=== PATIENT | male | born 1960 | race African-American/Black ===

== ENCOUNTER → 2021-01-07 | Outpatient (CLI) | payer OTHER ==
[~2021-01-07] MED LIST: AMIT25TA PO; LISI-517 PO
== END ==
LOC: LAB 11:38
PROVIDERS: ATTEND Podiatrist Foot & Ankle Surgery
DX: Z01.812 Encounter for preprocedural laboratory examination (principal); Z20.822 Contact with and (suspected) exposure to COVID-19; Z89.439 Acquired absence of unspecified foot
CPT/HCPCS: U0003

== ENCOUNTER → 2021-01-11 | Day surgery (SDC) | payer OTHER ==
[~2021-01-11] MED LIST changes: +AMITRIPTYLINE HCL 25 MG TABLET. PO SCH; +BUPIVACAINE MPF 0.5% 30 ML VIAL. ONE; +DEXAMETHASONE SOD PHOS 4 MG/ML VIAL ONE; +HYDROmorphone 2 MG/ML VIAL IVP PRN; +IV RINGERS,LACTATED 1000ML 1,000 ML IV SCH; +LIDOCAINE 1% PF 30 ML VIAL. ONE; +LIDOCAINE 2% PF 5 ML VIAL. ONE; +LISINOPRIL 5 MG TABLET. PO SCH; +MIDAZOLAM HCL/PF 2 MG/2 ML VIAL. ONE; +MORPHINE SULFATE 2 MG/ML VIAL. IVP PRN; +POVIDONE-IODINE 10% TOPICAL OINTMENT 28GM TUBE. TP ONE; +PROCHLORPERAZINE 10 MG/2 ML VIAL. IVP PRN; +PROPOFOL 10 MG/ML (20ML) VIAL. IV ONE; +REGADENOSON 0.4 MG/5 ML DISP.SYRIN. IV ONE; +ROCURONIUM 50 MG/5 ML VIAL. ONE; +fentaNYL PF VIAL 100 MCG/2 ML VIAL IVP PRN; +fentaNYL PF VIAL 100 MCG/2 ML VIAL ONE; +fentaNYL PF VIAL 250 MCG/5 ML VIAL ONE
--- NOTE | 2021-01-11 10:19 | PDOC1 ---
History and Physical Date of Admission Date of Admission DATE: 01/11/21 TIME: 10:18 Identification/Chief Complaint Chief Complaint left foot 1st toe pain, 2nd toe pain, occasional exertional angina, surgery on hold pending cardiology consult History of Present Illness History of Present Illness 60 yr old male with left foot pain, hallux deformity to have surgical correction today, has noticed some chest discomfort ove the last 2 weeks, none today, ekg and troponin ordered pre-op is also a heavy drinker, smokes 1/2 ppd x 40 plus years Past Medical History Cardiovascular: HTN Musculoskeletal: Osteoarthritis Family History Family History: Hypertension Social History Smoke: <1 pack per day ALCOHOL: heavy Drugs: None Current Medications Current Medications Current Medications Fentanyl Citrate (Fentanyl 2ml Vial) 25 mcg PRN Q5MIN PRN IVP MILD PAIN 1-3; Start 01/11/21 at 06:00; Stop 01/12/21 at 05:59 Fentanyl Citrate (Fentanyl 2ml Vial) 50 mcg PRN Q5MIN PRN IVP MODERATE PAIN 4- 6; Start 01/11/21 at 06:00; Stop 01/12/21 at 05:59 Morphine Sulfate (Morphine Sulfate) 1 mg PRN Q10MIN PRN IVP SEVERE PAIN 7-10; Start 01/11/21 at 06:00; Stop 01/12/21 at 05:59 Ringer's Solution 1,000 ml @ 30 mls/hr Q24H IV ; Start 01/11/21 at 06:00; Stop 01/11/21 at 17:59 Hydromorphone HCl (Dilaudid) 0.5 mg PRN Q10MIN PRN IVP SEVERE PAIN 7-10, 2nd CHOICE; Start 01/11/21 at 06:00; Stop 01/12/21 at 05:59 Prochlorperazine Edisylate (Compazine) 5 mg PACU PRN PRN IVP NAUSEA, MRX1; Start 01/11/21 at 06:00; Stop 01/12/21 at 05:59 Active Scripts Active Reported Amitriptyline Hcl 25 Mg Tablet 25 Mg PO DAILY Lisinopril 5 Mg Tablet 1 Tab PO DAILY Allergies Allergies: Coded Allergies: No Known Drug Allergies (Unverified , 01/11/21) ROS Review of System was having chest discomfort last week General: No: Chills, Night Sweats, Fatigue, Malaise, Appetite, Other PSYCHOLOGICAL ROS: No: Anxiety, Behavioral Disorder, Concentration difficultie, Decreased libido, Depression, Disorientation, Hallucinations, Hostility, Irritablity, Memory difficulties, Mood Swings, Obsessive thoughts, Physical abuse, Sexual abuse, Sleep disturbances, Suicidal ideation, Other Eyes: No Blurry vision, No Decreased vision, No Double vision, No Dry eyes, No Excessive tearing, No Eye Pain, No Itchy Eyes, No Loss of vision, No Photophobia , No Scotomata, No Uses contacts, No Uses glasses, No Other HEENT: No: Heacaches, Visual Changes, Hearing change, Nasal congestion, Nasal discharge, Oral lesions, Sinus pain, Sore Throat, Epistaxis, Sneezing, Snoring, Tinnitus, Vertigo, Vocal changes, Other ALLERGY AND IMMUNOLOGY: No: Hives, Insect Bite Sensitivity, Itchy/Watery Eyes, Nasal Congestion, Post Nasal Drip, Seasonal Allergies, Other Hematological and Lymphatic: No: Bleeding Problems, Blood Clots, Blood Transfusions, Brusing, Night Sweats, Pallor, Swollen Lymph Nodes, Other ENDOCRINE: No: Breast Changes, Galactorrhea, Hair Pattern Changes, Hot Flashes, Malaise/lethargy, Mood Swings, Palpitations, Polydipsia/polyuria, Skin Changes, Temperature Intolerance, Unexpected Weight Changes, Other Breast: No New/Changing Breast Lumps, No Nipple changes, No Nipple discharge, No Other Respiratory: No: Cough, Hemoptysis, Orthopnea, Pleuritic Pain, Shortness of breath, SOB with excertion, Sputum Changes, Stridor, Tachypnea, Wheezing, Other Cardiovascular: yes Chest Pain; No Palpitations, No Orthopnea, No Paroxysmal Noc. Dyspnea, No Edema, No Lt Headedness, No Other (occ exertional angina) Gastrointestinal: No Nausea, No Vomiting, No Abdominal Pain, No Diarrhea, No Constipation, No Melena, No Hematochezia, No Other Genitourinary: No Dysuria, No Frequency, No Incontinence, No Hematuria, No Retention, No Discharge, No Urgency, No Pain, No Flank Pain, No Other, No , No , No , No , No , No , No Musculoskeletal: Yes Gait Disturbance, Yes Joint Pain, Yes Joint Stiffness Neurological: No Behavorial Changes, No Bowel/Bladder ControlChng, No Confus ion, No Dizziness, No Gait Disturbance, No Headaches, No Impaired Coord/balance, No Memory Loss, No Numbness/Tingling, No Seizures, No Speech Problems, No Tremors, No Visual Changes, No Weakness, No Other Skin: No Dry Skin, No Eczema, No Hair Changes, No Lumps, No Mole Changes, No Mottling, No Nail Changes, No Pruritus, No Rash, No Skin Lesion Changes, No Othe r, No Acne Physical Exam General: Alert, Oriented X3, Cooperative, No acute distress HEENT: PERRLA Lungs: Clear to auscultation, Normal air movement Heart: S1S2, RRR, no thrills, no rubs, no gallops, no murmurs Breasts: Not examined Abdomen: Normal bowel sounds, Soft Rectal Exam: not examined, deferred Extremities: No cyanosis Neuro: Normal speech, Strength at 5/5 X4 ext, Normal tone, Sensation intact, Cranial nerves 3-12 NL Psych/Mental Status: Mental status NL, Mood NL VTE Prophylaxis Ordered VTE Prophylaxis Devices: Yes VTE Pharmacological Prophylaxi: Yes Assessment/Plan Assessment/Plan impression 1. left foot pain with hallux deformity 2. hx hypertension 3. recent chest discomfort concerning for CAD 4. heavy alcohol abuse 5. Tobacco abuse disorder plan ekg stat, troponin , cbc, comp, cxr HOLD SURGERY TODAY, CARDIOLOGY CONSULT REDUCE OR STOP ETOH ABUSE HOME MEDS Justifications for Admission Other Justification SUMEET RIVERA MD Jan 11, 2021 10:19
[2021-01-11 10:23] VITALS: BP 178/98
[2021-01-11 10:42] LABS: BASO % 1 % (0-3); EOS # 0.2 x10^3/uL (0.0-0.7); EOS % 4 % (0-3); HEMATOCRIT 45.4 % (39.0-53.0); HEMOGLOBIN 15.3 g/dL (13.0-17.5); LYMPH # 1.5 x10^3/uL (1.0-4.8); LYMPH % 31 % (24-48); MEAN CORPUSCULAR HEMOGLOBIN 31 pg (25-35); MEAN CORPUSCULAR HGB CONC 34 g/dL (31-37); MEAN CORPUSCULAR VOLUME 93 fL (79-100); MONO # 0.6 x10^3/uL (0.0-1.1); MONO % 12 % (0-9); NEUT # 2.5 x10^3/uL (1.8-7.7); NEUT % 52 % (31-73); PLATELET COUNT 305 x10^3/uL (140-400); RED BLOOD COUNT 4.86 x10^6/uL (4.30-5.70); RED CELL DISTRIBUTION WIDTH 14.5 % (11.5-14.5); WHITE BLOOD COUNT 4.8 x10^3/uL (4.0-11.0)
[2021-01-11 11:04] LABS: CALCIUM 8.5 mg/dL (8.5-10.1); GFR 92.5; POTASSIUM 4.2 mmol/L (3.5-5.1)
--- NOTE | 2021-01-11 11:26 | RAD ---
XR CHEST 1V History: Reason: chest pain / Spl. Instructions: Comparison: None. Findings: Mild bibasilar linear atelectasis. No consolidation or pleural effusion. Normal heart size. No pneumo thorax. Impression: 1. Mild bibasilar linear atelectasis. Electronically signed by: German Darling DO (01/11/2021 11:24 AM) [id number]
--- NOTE | 2021-01-11 12:01 | NUR ---
PT CANCELED FOR TOE AMPUTATION. PT STATES HE HAS BEEN HAVING INTERMITTENT CP ON EXERTION IN THE LAST FEW WEEKS. EKG, CXR, TRAPONIN, CBC, CMP ORDERED AND REVIEWED VIA DR CROWE AND LEROY TELEPHONE OPERATOR RECEPTIONIST ARCHITECTURE PROFESSOR. SURGERY CANCELLED FOR TODAY. CARDIOLOGY TO ORDER STRESS TEST AND PT TO RESCHEDULE ELECTIVE TOE AMPUTATION AT A LATER DATE. ANESTHESIA AND DR HUERTA NOTIFIED OF CANCELLATION.
--- NOTE | 2021-01-11 12:20 | NUR ---
[facility] CALLED AND PT TO GO TO [facility] STRESS TEST TODAY. [facility] TO COME GET PT FROM [facility] ROOM [facility] AND TAKE HIM TO [facility]. NOTIFIED THEM TO NOTIFY LEROY LUKE AFTER TEST IS OVER FOR CLEARANCE TO GO HOME. PT IS DISCHARGED FOR NOW FROM ANESTHESIA AND SURGERY PERSPECTIVE TODAY. TO RESCHEDULE SURGERY PENDING CARDIAC CLEARANCE AT A LATER DATE
[2021-01-11 12:37] LABS: CHOLESTEROL/HDL RATIO 2.9
--- NOTE | 2021-01-11 15:46 | PDOC2 ---
CARDIAC CONSULT DATE OF CONSULT Date of Consult DATE: 01/11/21 TIME: 1300 REASON FOR CONSULT Reason for Consult: Chest pain REFERRING PHYSICIAN Referring Physician: Fullbright SOURCE Source: Chart review, Patient HISTORY OF PRESENT ILLNESS HISTORY OF PRESENT ILLNESS This is a pleasant 60 yo male admitted for planned left 2nd toe amputation. He was being prepped and hx being obtained but has reported recently in the last 2 weeks of exertional chest pain and dyspnea. This is intermittent and thought this is anxiety related. 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 He goes up the stairs and move heavy object and started having midchest tightness and resolved in 5-10 minutes after rest. No associated, heartburn, indigestion, jaw tightness, nausea or vomiting. His SOAis also intermittent mainly with exertion. No hx of CAD and had remote stress test. No known hx of arrhythmias. He has HTN and takes med for it. He was also told of high cholesterol in the past but no meds. He is a heavy beer use and smokes a pack of tobacco since he was 8 yo. Denies any routine NSAID use. PAST MEDICAL HISTORY Cardiovascular: HTN, Hyperlipidemia Pulmonary: No pertinent hx CENTRAL NERVOUS SYSTEM: Other (No pertinent history) GI: No pertinent hx Heme/Onc: No pertinent hx Hepatobiliary: No pertinent hx Psych: Anxiety, Other (heavy ETOH use) Musculoskeletal: Osteoarthritis Rheumatologic: No pertinent hx Infectious disease: No pertinent hx ENT: No pertinent hx Renal/: No pertinent hx Endocrine: No pertinent hx Dermatology: No pertinent hx PAST SURGICAL HISTORY Past Surgical History: Arthroscopy (left ankle, toe surgery) FAMILY HISTORY Family History: Heart Disease (sister), Stroke (father) SOCIAL HISTORY Smoke: 1 pack per day ALCOHOL: heavy ( 6 beers at least daily) Drugs: None Lives: with Family CURRENT MEDICATIONS CURRENT MEDICATIONS Current Medications Medications (Trade) Dose Ordered Sig/Marshall Route PRN Reason Start Time Stop Time Status Last Admin Dose Admin Ringer's Solution 1,000 ml @ 30 mls/hr Q24H IV 01/11/21 06:00 01/11/21 17:59 01/11/21 10:28 Regadenoson (Lexiscan) 0.4 mg 1X ONCE IV 01/11/21 14:00 01/11/21 14:01 DC 01/11/21 14:45 ALLERGIES ALLERGIES: Coded Allergies: No Known Drug Allergies (Unverified , 01/11/21) ROS Review of System 14 point ROS evaluated with pertinent positives noted per HPI PHYSICAL EXAM General: Alert, Oriented X3, Cooperative, No acute distress HEENT: Atraumatic, Mucous membr. moist/pink Lungs: Clear to auscultation, Normal air movement Heart: Regular rate (SR per EKG), Normal S1, Normal S2, No murmurs Abdomen: Soft, No tenderness Extremities: No cyanosis, No edema Skin: No breakdown, No significant lesion Neuro: Normal speech, Sensation intact Psych/Mental Status: Mental status NL, Mood NL MUSCULOSKELETAL: Osteoarthritic changes both hands VITALS/I&O VITALS/I&O: Vital Signs Date Time Temp Pulse Resp B/P (MAP) Pulse Ox O2 Delivery O2 Flow Rate FiO2 01/11/21 10:23 97.6 80 20 98 97.6 01/11/21 10:18 178/98 Room Air LABS Lab: Laboratory Tests Test 01/11/21 10:28 White Blood Count 4.8 x10^3/uL (4.0-11.0) Red Blood Count 4.86 x10^6/uL (4.30-5.70) Hemoglobin 15.3 g/dL (13.0-17.5) Hematocrit 45.4 % (39.0-53.0) Mean Corpuscular Volume 93 fL (79-100) Mean Corpuscular Hemoglobin 31 pg (25-35) Mean Corpuscular Hemoglobin Concent 34 g/dL (31-37) Red Cell Distribution Width 14.5 % (11.5-14.5) Platelet Count 305 x10^3/uL (140-400) Neutrophils (%) (Auto) 52 % (31-73) Lymphocytes (%) (Auto) 31 % (24-48) Monocytes (%) (Auto) 12 % (0-9) H Eosinophils (%) (Auto) 4 % (0-3) H Basophils (%) (Auto) 1 % (0-3) Neutrophils # (Auto) 2.5 x10^3/uL (1.8-7.7) Lymphocytes # (Auto) 1.5 x10^3/uL (1.0-4.8) Monocytes # (Auto) 0.6 x10^3/uL (0.0-1.1) Eosinophils # (Auto) 0.2 x10^3/uL (0.0-0.7) Basophils # (Auto) 0.0 x10^3/uL (0.0-0.2) Sodium Level 139 mmol/L (136-145) Potassium Level 4.2 mmol/L (3.5-5.1) Chloride Level 104 mmol/L (98-107) Carbon Dioxide Level 27 mmol/L (21-32) Anion Gap 8 (6-14) Blood Urea Nitrogen 11 mg/dL (8-26) Creatinine 1.0 mg/dL (0.7-1.3) Estimated GFR (Cockcroft-Gault) 92.5 Glucose Level 99 mg/dL (70-99) Calcium Level 8.5 mg/dL (8.5-10.1) Troponin I Quantitative < 0.017 ng/mL (0.000-0.055) Triglycerides Level 97 mg/dL (0-150) Cholesterol Level 194 mg/dL (0-200) LDL Cholesterol, Calculated 109 mg/dL (0-100) H VLDL Cholesterol, Calculated 19 mg/dL (0-40) Non-HDL Cholesterol Calculated 128 mg/dL (0-129) HDL Cholesterol 66 mg/dL (40-60) H Cholesterol/HDL Ratio 2.9 Laboratory Tests 01/11/21 10:28 Laboratory Tests 01/11/21 10:28 ASSESSMENT/PLAN ASSESSMENT/PLAN 1. Chest pain: typical features. initial trop nml. EKG SR with possible LVH and early repolarization 2. Left hallux deformity with planned correction 3. HTN: labile 4. DLP: no med 5. Tobaccoism 6. ETOH misuse: 6 beers daily Recommendations 1. Notable cardiac risk factors. MPI today. If this is unremarkable then may DC to home and reschedule surgery 2. Continue home BP regimen, on home lisinopril. DASH diet. HBPM. Check FLP 3. Smoking cessation, need to curb ETOH use. LEROY LUKE APRN Jan 11, 2021 15:46
--- NOTE | 2021-01-11 18:25 | RAD ---
MR#: [id number] Date of Study: 01/11/2021 Ordering Physician: LEROY LUKE, Referring Physician: CASI WATTS Tech: RT Ian Wilson) (N) APPROVED REPORT Test Type: Pharmacological Stress Nurse/Tech: JIMMY MAS Test Indications: PRE-OP, CHEST PAIN 2 WEEKS AGO Cardiac History: HTN- SEE EMR Medications: SEE EMR Medical History: SMOKER, HTN- SEE EMR Resting ECG: SR Resting Heart Rate: 71 bpm Resting Blood Pressure: 152/94mmHg Pretest Chest Pain: No chest pain Nurse/Tech Notes S1,S2, LUNGS CTA, DENIED CHEST PAIN OR SOA AT THIS TIME. BP SLIGHTLY ELEVATED. Consent: The procedure was explained to the patient in lay terms. Informed consent was witnessed. Madan eout was entered into [facility]. History and Stress Test performed by RT Ian Wilson) (N) Pharm. Details Pharmacologic stress testing was performed using 0.4mg per 5ml of regadenoson given intravenously ove r 7-10 seconds. Stress Symptoms ONLY COMPLAINT PT HAD WAS SHORTNESS OF BREATH, SYMPTOM SUBSIDED QUICKLY. DENIED CHEST PAIN. VSS. POST EXERCISE Reason for Termination: Infusion complete Max HR: 113 bpm Max Blood Pressure: 158/97mmHg Blood Pressure response to exercise: Abnormal blood pressure response during stress. Heart Rate response to exercise: Normal heart rate response during stress. Chest Pain: No. Arrhythmia: No. No significant changes noted from baseline EKG. ST Change: No. INTERPRETATION Stress EKG Conclusion: Baseline EKG showed sinus rhythm. No ischemic changes at peak stress. No arr hythmias. Imaging Protocol IMAGE PROTOCOL: Rest Tc-99m/stress Tc-99m 1 day Rest: Stress: Viability: Radiopharm.Tc99m [id number] Sestamibi Dose10.6mCi 32mCi Duration 13min. 13min. Img Date 01/11/2021 01/11/2021 Inj-Img [id number]. 60min. Rest Admin Site:IV - Left HandAdministrator:RT Ian Wilson)(N) Stress Admin Site: IV - Left HandAdministrator: Rocio Toribio RT (R)(N) STRESS DATA End Diast. Vol.103.0mlLVEDV index BSA57.0ml End Syst. Vol.32.0mlLVESV index BSA18.0ml Myocardial Buge439.0gEject. Pphkctit07.0% Stress Scores Regional WT2.00Summed WT9.00 Regional WM0.00Summed WM1.00 Study quality was good. Left Ventricular size was Normal at Rest and Stress. Lung uptake was . Left Ventricular ejection fraction is 68%. The rest and stress images show normal perfusion, normal contraction and thickening. LV Perf. Quant 17 Seg. SSS1.00 17 Seg. SRS2.00 17 Seg. SDS0.00 Stress Defect Extent (% LAD)0.00Rest Defect Extent (% LAD)0.00Rev. Defect Extent (% LAD)0.00 Stress Defect Extent (% LCX) 0.00Rest Defect Extent (% LCX)0.00Rev. Defect Extent (% LCX)0.00 Stress Defect Extent (% RCA)0.00Rest Defect Extent (% RCA)14.40Rev. Defect Extent (% RCA)0.00 Stress Defect Extent (% STACIA)0.00Rest Defect Extent (% STACIA)3.90Rev. Defect Extent (% STACIA)0.00 Conclusion 1. Regadenoson cardioisotope stress test did not show any evidence of ischemia or infarct. 2. Normal left ventricular systolic function with ejection fraction calculated at 68%. 3. Low risk for cardiac events. Signed by : Ramos Perez, Electronically Approved : 01/11/2021 18:25:01
--- NOTE | 2021-01-11 19:06 | PDOC3 ---
Discharge Summary Date of Admission: Jan 11, 2021 Date of Discharge: Jan 11, 2021 Follow-Up: 3-5 days Admitting Diagnosis comment: VTE Prophylaxis Ordered VTE Prophylaxis Devices: Yes VTE Pharmacological Prophylaxi: Yes discharge dx Assessment/Plan impression 1. left foot pain with hallux deformity 2. hx hypertension 3. recent chest discomfort concerning for CAD 4. heavy alcohol abuse 5. Tobacco abuse disorder plan ekg stat, troponin , cbc, comp, cxr HOLD SURGERY TODAY, CARDIOLOGY CONSULT reviewed REDUCE OR STOP ETOH ABUSE HOME MEDS stress test today was low risk, will re-schedule surgery soon hpi Identification/Chief Complaint Chief Complaint left foot 1st toe pain, 2nd toe pain, occasional exertional angina, surgery on hold pending cardiology consult History of Present Illness History of Present Illness 60 yr old male with left foot pain, hallux deformity to have surgical correction today, has noticed some chest discomfort ove the last 2 weeks, none today, ekg and troponin ordered pre-op is also a heavy drinker, smokes 1/2 ppd x 40 plus years Past Medical History Cardiovascular: HTN Musculoskeletal: Osteoarthritis Family History Family History: Hypertension Social History Smoke: <1 pack per day ALCOHOL: heavy Drugs: None Current Medications Current Medications Current Medications Fentanyl Citrate (Fentanyl 2ml Vial) 25 mcg PRN Q5MIN PRN IVP MILD PAIN 1-3; Start 01/11/21 at 06:00; Stop 01/12/21 at 05:59 Fentanyl Citrate (Fentanyl 2ml Vial) 50 mcg PRN Q5MIN PRN IVP MODERATE PAIN 4- 6; Start 01/11/21 at 06:00; Stop 01/12/21 at 05:59 Morphine Sulfate (Morphine Sulfate) 1 mg PRN Q10MIN PRN IVP SEVERE PAIN 7-10; Start 01/11/21 at 06:00; Stop 01/12/21 at 05:59 Ringer's Solution 1,000 ml @ 30 mls/hr Q24H IV ; Start 01/11/21 at 06:00; Stop 01/11/21 at 17:59 Hydromorphone HCl (Dilaudid) 0.5 mg PRN Q10MIN PRN IVP SEVERE PAIN 7-10, 2nd CHOICE; Start 01/11/21 at 06:00; Stop 01/12/21 at 05:59 Prochlorperazine Edisylate (Compazine) 5 mg PACU PRN PRN IVP NAUSEA, MRX1; Start 01/11/21 at 06:00; Stop 01/12/21 at 05:59 Active Scripts Active Reported Amitriptyline Hcl 25 Mg Tablet 25 Mg PO DAILY Lisinopril 5 Mg Tablet 1 Tab PO DAILY Allergies Allergies: Coded Allergies: No Known Drug Allergies (Unverified , 01/11/21) ROS Review of System was having chest discomfort last week General: No: Chills, Night Sweats, Fatigue, Malaise, Appetite, Other PSYCHOLOGICAL ROS: No: Anxiety, Behavioral Disorder, Concentration difficultie, Decreased libido, Depression, Disorientation, Hallucinations, Hostility, Irritablity, Memory difficulties, Mood Swings, Obsessive thoughts, Physical abuse, Sexual abuse, Sleep disturbances, Suicidal ideation, Other Eyes: No Blurry vision, No Decreased vision, No Double vision, No Dry eyes, No Excessive tearing, No Eye Pain, No Itchy Eyes, No Loss of vision, No Photophobia, No Scotomata, No Uses contacts, No Uses glasses, No Other HEENT: No: Heacaches, Visual Changes, Hearing change, Nasal congestion, Nasal discharge, Oral lesions, Sinus pain, Sore Throat, Epistaxis, Sneezing, Snoring, Tinnitus, Vertigo, Vocal changes, Other ALLERGY AND IMMUNOLOGY: No: Hives, Insect Bite Sensitivity, Itchy/Watery Eyes, Nasal Congestion, Post Nasal Drip, Seasonal Allergies, Other Hematological and Lymphatic: No: Bleeding Problems, Blood Clots, Blood Transfusions, Brusing, Night Sweats, Pallor, Swollen Lymph Nodes, Other ENDOCRINE: No: Breast Changes, Galactorrhea, Hair Pattern Changes, Hot Flashes, Malaise/lethargy, Mood Swings, Palpitations, Polydipsia/polyuria, Skin Changes, Temperature Intolerance, Unexpected Weight Changes, Other Breast: No New/Changing Breast Lumps, No Nipple changes, No Nipple discharge, No Other Respiratory: No: Cough, Hemoptysis, Orthopnea, Pleuritic Pain, Shortness of breath, SOB with excertion, Sputum Changes, Stridor, Tachypnea, Wheezing, Other Cardiovascular: yes Chest Pain; No Palpitations, No Orthopnea, No Paroxysmal Noc. Dyspnea, No Edema, No Lt Headedness, No Other (occ exertional angina) Gastrointestinal: No Nausea, No Vomiting, No Abdominal Pain, No Diarrhea, No Constipation, No Melena, No Hematochezia, No Other Genitourinary: No Dysuria, No Frequency, No Incontinence, No Hematuria, No Retention, No Discharge, No Urgency, No Pain, No Flank Pain, No Other, No , No , No , No , No , No , No Musculoskeletal: Yes Gait Disturbance, Yes Joint Pain, Yes Joint Stiffness Neurological: No Behavorial Changes, No Bowel/Bladder ControlChng, No Confusion, No Dizziness, No Gait Disturbance, No Headaches, No Impaired Coord/balance, No Memory Loss, No Numbness/Tingling, No Seizures, No Speech Prob lems, No Tremors, No Visual Changes, No Weakness, No Other Skin: No Dry Skin, No Eczema, No Hair Changes, No Lumps, No Mole Changes, No Mottling, No Nail Changes, No Pruritus, No Rash, No Skin Lesion Changes, No Other, No Acne Physical Exam General: Alert, Oriented X3, Cooperative, No acute distress HEENT: PERRLA Lungs: Clear to auscultation, Normal air movement Heart: S1S2, RRR, no thrills, no rubs, no gallops, no murmurs Breasts: Not examined Abdomen: Normal bowel sounds, Soft Rectal Exam: not examined, deferred Extremities: No cyanosis Neuro: Normal speech, Strength at 5/5 X4 ext, Normal tone, Sensation intact, Cranial nerves 3-12 NL Psych/Mental Status: Mental status NL, Mood NL VTE Prophylaxis Ordered VTE Prophylaxis Devices: Yes VTE Pharmacological Prophylaxi: Yes Brief Hospital Course Mr. Monterroso is a 60 old [sex] who presented with [ foot pain, recent chest discomfort] CONDITION AT DISCHARGE: Improved Discharge Medications Current Medications Fentanyl Citrate (Fentanyl 2ml Vial) 25 mcg PRN Q5MIN PRN IVP MILD PAIN 1-3; Start 01/11/21 at 06:00; Stop 01/12/21 at 05:59 Fentanyl Citrate (Fentanyl 2ml Vial) 50 mcg PRN Q5MIN PRN IVP MODERATE PAIN 4- 6; Start 01/11/21 at 06:00; Stop 01/12/21 at 05:59 Morphine Sulfate (Morphine Sulfate) 1 mg PRN Q10MIN PRN IVP SEVERE PAIN 7-10; Start 01/11/21 at 06:00; Stop 01/12/21 at 05:59 Ringer's Solution 1,000 ml @ 30 mls/hr Q24H IV Last administered on 01/11/21at 10:28; Start 01/11/21 at 06:00; Stop 01/11/21 at 17:59; Status DC Hydromorphone HCl (Dilaudid) 0.5 mg PRN Q10MIN PRN IVP SEVERE PAIN 7-10, 2nd CHOICE; Start 01/11/21 at 06:00; Stop 01/12/21 at 05:59 Prochlorperazine Edisylate (Compazine) 5 mg PACU PRN PRN IVP NAUSEA, MRX1; Start 01/11/21 at 06:00; Stop 01/12/21 at 05:59 Amitriptyline HCl (Elavil) 25 mg DAILY PO ; Start 01/12/21 at 09:00; Status UNV Lisinopril (Prinivil) 5 mg DAILY PO ; Start 01/12/21 at 09:00; Status UNV Lidocaine HCl (Lidocaine Pf 2% Vial) 5 ml STK-MED ONCE .ROUTE ; Start 01/11/21 at 10:48; Stop 01/11/21 at 10:49; Status DC Propofol (Diprivan) 200 mg STK-MED ONCE IV ; Start 01/11/21 at 10:48; Stop 01/11/21 at 10:49; Status DC Fentanyl Citrate (Fentanyl 2ml Vial) 100 mcg STK-MED ONCE .ROUTE ; Start 01/11/21 at 10:48; Stop 01/11/21 at 10:49; Status DC Lidocaine HCl (Xylocaine 1% Pf 30ml Vial) 30 ml STK-MED ONCE .ROUTE ; Start 01/11/21 at 11:56; Stop 01/11/21 at 11:56; Status DC Bupivacaine HCl (Sensorcaine Mpf 0.5%) 30 ml STK-MED ONCE .ROUTE ; Start 01/11/21 at 11:56; Stop 01/11/21 at 11:56; Status DC Povidone Iodine (Betadine Oint) 28 lee ann STK-MED ONCE TP ; Start 01/11/21 at 11:59; Stop 01/11/21 at 11:59; Status DC Dexamethasone Sodium Phosphate (Decadron) 4 mg STK-MED ONCE .ROUTE ; Start 01/11/21 at 11:59; Stop 01/11/21 at 11:59; Status DC Regadenoson (Lexiscan) 0.4 mg 1X ONCE IV Last administered on 01/11/21at 14:45; Start 01/11/21 at 14:00; Stop 01/11/21 at 14:01; Status DC Active Scripts Active Reported Amitriptyline Hcl 25 Mg Tablet 25 Mg PO DAILY Lisinopril 5 Mg Tablet 1 Tab PO DAILY Vital Signs Vital Signs Date Time Temp Pulse Resp B/P (MAP) Pulse Ox O2 Delivery O2 Flow Rate FiO2 01/11/21 10:23 97.6 80 20 98 97.6 01/11/21 10:18 178/98 Room Air Labs Laboratory Tests Test 01/11/21 10:28 White Blood Count 4.8 x10^3/uL (4.0-11.0) Red Blood Count 4.86 x10^6/uL (4.30-5.70) Hemoglobin 15.3 g/dL (13.0-17.5) Hematocrit 45.4 % (39.0-53.0) Mean Corpuscular Volume 93 fL (79-100) Mean Corpuscular Hemoglobin 31 pg (25-35) Mean Corpuscular Hemoglobin Concent 34 g/dL (31-37) Red Cell Distribution Width 14.5 % (11.5-14.5) Platelet Count 305 x10^3/uL (140-400) Neutrophils (%) (Auto) 52 % (31-73) Lymphocytes (%) (Auto) 31 % (24-48) Monocytes (%) (Auto) 12 % (0-9) Eosinophils (%) (Auto) 4 % (0-3) Basophils (%) (Auto) 1 % (0-3) Neutrophils # (Auto) 2.5 x10^3/uL (1.8-7.7) Lymphocytes # (Auto) 1.5 x10^3/uL (1.0-4.8) Monocytes # (Auto) 0.6 x10^3/uL (0.0-1.1) Eosinophils # (Auto) 0.2 x10^3/uL (0.0-0.7) Basophils # (Auto) 0.0 x10^3/uL (0.0-0.2) Sodium Level 139 mmol/L (136-145) Potassium Level 4.2 mmol/L (3.5-5.1) Chloride Level 104 mmol/L (98-107) Carbon Dioxide Level 27 mmol/L (21-32) Anion Gap 8 (6-14) Blood Urea Nitrogen 11 mg/dL (8-26) Creatinine 1.0 mg/dL (0.7-1.3) Estimated GFR (Cockcroft-Gault) 92.5 Glucose Level 99 mg/dL (70-99) Calcium Level 8.5 mg/dL (8.5-10.1) Troponin I Quantitative < 0.017 ng/mL (0.000-0.055) Triglycerides Level 97 mg/dL (0-150) Cholesterol Level 194 mg/dL (0-200) LDL Cholesterol, Calculated 109 mg/dL (0-100) VLDL Cholesterol, Calculated 19 mg/dL (0-40) Non-HDL Cholesterol Calculated 128 mg/dL (0-129) HDL Cholesterol 66 mg/dL (40-60) Cholesterol/HDL Ratio 2.9 Laboratory Tests Test 01/11/21 10:28 White Blood Count 4.8 x10^3/uL (4.0-11.0) Red Blood Count 4.86 x10^6/uL (4.30-5.70) Hemoglobin 15.3 g/dL (13.0-17.5) Hematocrit 45.4 % (39.0-53.0) Mean Corpuscular Volume 93 fL (79-100) Mean Corpuscular Hemoglobin 31 pg (25-35) Mean Corpuscular Hemoglobin Concent 34 g/dL (31-37) Red Cell Distribution Width 14.5 % (11.5-14.5) Platelet Count 305 x10^3/uL (140-400) Neutrophils (%) (Auto) 52 % (31-73) Lymphocytes (%) (Auto) 31 % (24-48) Monocytes (%) (Auto) 12 % (0-9) Eosinophils (%) (Auto) 4 % (0-3) Basophils (%) (Auto) 1 % (0-3) Neutrophils # (Auto) 2.5 x10^3/uL (1.8-7.7) Lymphocytes # (Auto) 1.5 x10^3/uL (1.0-4.8) Monocytes # (Auto) 0.6 x10^3/uL (0.0-1.1) Eosinophils # (Auto) 0.2 x10^3/uL (0.0-0.7) Basophils # (Auto) 0.0 x10^3/uL (0.0-0.2) Sodium Level 139 mmol/L (136-145) Potassium Level 4.2 mmol/L (3.5-5.1) Chloride Level 104 mmol/L (98-107) Carbon Dioxide Level 27 mmol/L (21-32) Anion Gap 8 (6-14) Blood Urea Nitrogen 11 mg/dL (8-26) Creatinine 1.0 mg/dL (0.7-1.3) Estimated GFR (Cockcroft-Gault) 92.5 Glucose Level 99 mg/dL (70-99) Calcium Level 8.5 mg/dL (8.5-10.1) Troponin I Quantitative < 0.017 ng/mL (0.000-0.055) Triglycerides Level 97 mg/dL (0-150) Cholesterol Level 194 mg/dL (0-200) LDL Cholesterol, Calculated 109 mg/dL (0-100) VLDL Cholesterol, Calculated 19 mg/dL (0-40) Non-HDL Cholesterol Calculated 128 mg/dL (0-129) HDL Cholesterol 66 mg/dL (40-60) Cholesterol/HDL Ratio 2.9 Allergies Allergies Coded Allergies Type Severity Reaction Last Updated Verified No Known Drug Allergies 01/11/21 No Disposition/Orders: D/C to Home Justicifation of Admission Dx: Justifications for Admission: Justification of Admission Dx: No Angina: New-Onset SUMEET RIVERA MD Jan 11, 2021 19:06
== END | disposition home or self-care (01) ==
LOC: SURG 09:53 → EDUNIT# 12:00
PROVIDERS: ATTEND Podiatrist Foot & Ankle Surgery
DX: R07.9 Chest pain, unspecified (principal); Z53.8 Procedure and treatment not carried out for other reasons; R06.02 Shortness of breath; J98.11 Atelectasis; M19.90 Unspecified osteoarthritis, unspecified site; I10 Essential (primary) hypertension; E78.00 Pure hypercholesterolemia, unspecified; Z87.891 Personal history of nicotine dependence; Z79.82 Long term (current) use of aspirin; Z79.899 Other long term (current) drug therapy; Z98.890 Other specified postprocedural states
CPT/HCPCS: 36415; 71045; 78452; 80048; 80061; 84484; 85025; 93017; A9500; J2785; J1100; J2250; J2704; J3010; J3490

== ENCOUNTER 2021-01-14 08:22 | Day surgery (SDC) | payer OTHER ==
[~2021-01-14 08:22] MED LIST changes: -AMITRIPTYLINE HCL 25 MG TABLET. PO SCH; -BUPIVACAINE MPF 0.5% 30 ML VIAL. ONE; -DEXAMETHASONE SOD PHOS 4 MG/ML VIAL ONE; -LIDOCAINE 1% PF 30 ML VIAL. ONE; -LIDOCAINE 2% PF 5 ML VIAL. ONE; -LISINOPRIL 5 MG TABLET. PO SCH; -MIDAZOLAM HCL/PF 2 MG/2 ML VIAL. ONE; -POVIDONE-IODINE 10% TOPICAL OINTMENT 28GM TUBE. TP ONE; -PROPOFOL 10 MG/ML (20ML) VIAL. IV ONE; -REGADENOSON 0.4 MG/5 ML DISP.SYRIN. IV ONE; -ROCURONIUM 50 MG/5 ML VIAL. ONE; -fentaNYL PF VIAL 100 MCG/2 ML VIAL ONE; -fentaNYL PF VIAL 250 MCG/5 ML VIAL ONE
[2021-01-14] MEDS ORDERED: BUPIVACAINE MPF 0.5% 30 ML VIAL. ONE (08:37)
[2021-01-14] MEDS ORDERED: LIDOCAINE 1% PF 30 ML VIAL. ONE (08:37)
[2021-01-14] MEDS ORDERED: DEXAMETHASONE SOD PHOS 4 MG/ML VIAL ONE ×2 (08:38→09:04)
[2021-01-14] MEDS ORDERED: POVIDONE-IODINE 10% TOPICAL OINTMENT 28GM TUBE. TP ONE (08:38)
--- NOTE | 2021-01-14 08:57 | PDOC1 ---
History and Physical Date of Admission Date of Admission DATE: 01/14/21 TIME: 08:57 Identification/Chief Complaint Chief Complaint foot pain History of Present Illness History of Present Illness Identification/Chief Complaint Chief Complaint left foot 1st toe pain, 2nd toe pain, occasional exertional angina, cardiology consult cleared this week History of Present Illness History of Present Illness 60 yr old male with left foot pain, hallux deformity to have surgical correction today, has noticed some chest discomfort over the last 2 weeks, none today, ekg and troponin ok this week is also a heavy drinker, smokes 1/2 ppd x 40 plus years Past Medical History Cardiovascular: HTN Musculoskeletal: Osteoarthritis Family History Family History: Hypertension Social History Smoke: <1 pack per day ALCOHOL: heavy Drugs: None Current Medications Current Medications Past Medical History Cardiovascular: HTN, Hyperlipidemia Pulmonary: No pertinent hx CENTRAL NERVOUS SYSTEM: Other GI: No pertinent hx Heme/Onc: No pertinent hx Hepatobiliary: No pertinent hx Psych: Anxiety, Other Musculoskeletal: Osteoarthritis Rheumatologic: No pertinent hx Infectious disease: No pertinent hx Renal/: No pertinent hx Endocrine: No pertinent hx Past Surgical History Past Surgical History: Arthroscopy Family History Family History: Heart Disease, Stroke Social History Smoke: <1 pack per day ALCOHOL: heavy Drugs: None Current Medications Current Medications Current Medications Fentanyl Citrate (Fentanyl 2ml Vial) 25 mcg PRN Q5MIN PRN IVP MILD PAIN 1-3; Start 01/14/21 at 06:00; Stop 01/15/21 at 05:59 Fentanyl Citrate (Fentanyl 2ml Vial) 50 mcg PRN Q5MIN PRN IVP MODERATE PAIN 4- 6; Start 01/14/21 at 06:00; Stop 01/15/21 at 05:59 Morphine Sulfate (Morphine Sulfate) 1 mg PRN Q10MIN PRN IVP SEVERE PAIN 7-10; Start 01/14/21 at 06:00; Stop 01/15/21 at 05:59 Ringer's Solution 1,000 ml @ 30 mls/hr Q24H IV ; Start 01/14/21 at 06:00; Stop 01/14/21 at 17:59 Hydromorphone HCl (Dilaudid) 0.5 mg PRN Q10MIN PRN IVP SEVERE PAIN 7-10, 2nd CHOICE; Start 01/14/21 at 06:00; Stop 01/15/21 at 05:59 Prochlorperazine Edisylate (Compazine) 5 mg PACU PRN PRN IVP NAUSEA, MRX1; Start 01/14/21 at 06:00; Stop 01/15/21 at 05:59 Fentanyl Citrate (Fentanyl 2ml Vial) 25 mcg PRN Q5MIN PRN IVP MILD PAIN 1-3; Start 01/14/21 at 06:00; Stop 01/15/21 at 05:59; Status UNV Fentanyl Citrate (Fentanyl 2ml Vial) 50 mcg PRN Q5MIN PRN IVP MODERATE PAIN 4- 6; Start 01/14/21 at 06:00; Stop 01/15/21 at 05:59; Status UNV Morphine Sulfate (Morphine Sulfate) 1 mg PRN Q10MIN PRN IVP SEVERE PAIN 7-10; Start 01/14/21 at 06:00; Stop 01/15/21 at 05:59; Status UNV Ringer's Solution 1,000 ml @ 30 mls/hr Q24H IV ; Start 01/14/21 at 06:00; Stop 01/14/21 at 17:59; Status UNV Hydromorphone HCl (Dilaudid) 0.5 mg PRN Q10MIN PRN IVP SEVERE PAIN 7-10, 2nd CHOICE; Start 01/14/21 at 06:00; Stop 01/15/21 at 05:59; Status UNV Prochlorperazine Edisylate (Compazine) 5 mg PACU PRN PRN IVP NAUSEA, MRX1; Start 01/14/21 at 06:00; Stop 01/15/21 at 05:59; Status UNV Lidocaine HCl (Xylocaine 1% Pf 30ml Vial) 30 ml STK-MED ONCE .ROUTE ; Start 01/14/21 at 08:37; Stop 01/14/21 at 08:37; Status DC Bupivacaine HCl (Sensorcaine Mpf 0.5%) 30 ml STK-MED ONCE .ROUTE ; Start 01/14/21 at 08:37; Stop 01/14/21 at 08:38; Status DC Povidone Iodine (Betadine Oint) 28 lee ann STK-MED ONCE TP ; Start 01/14/21 at 08:38; Stop 01/14/21 at 08:38; Status DC Dexamethasone Sodium Phosphate (Decadron) 4 mg STK-MED ONCE .ROUTE ; Start 01/14/21 at 08:38; Stop 01/14/21 at 08:38; Status DC Active Scripts Active Reported Amitriptyline Hcl 25 Mg Tablet 25 Mg PO DAILY Lisinopril 5 Mg Tablet 1 Tab PO DAILY Allergies Allergies: Coded Allergies: No Known Drug Allergies (Unverified , 01/11/21) ROS Review of System ROS Review of System was having chest discomfort last week General: No: Chills, Night Sweats, Fatigue, Malaise, Appetite, Other PSYCHOLOGICAL ROS: No: Anxiety, Behavioral Disorder, Concentration difficultie, Decreased libido, Depression, Disorientation, Hallucinations, Hostility, Irritablity, Memory difficulties, Mood Swings, Obsessive thoughts, Physical abuse, Sexual abuse, Sleep disturbances, Suicidal ideation, Other Eyes: No Blurry vision, No Decreased vision, No Double vision, No Dry eyes, No Excessive tearing, No Eye Pain, No Itchy Eyes, No Loss of vision, No Photophobia, No Scotomata, No Uses contacts, No Uses glasses, No Other HEENT: No: Heacaches, Visual Changes, Hearing change, Nasal congestion, Nasal discharge, Oral lesions, Sinus pain, Sore Throat, Epistaxis, Sneezing, Snoring, Tinnitus, Vertigo, Vocal changes, Other ALLERGY AND IMMUNOLOGY: No: Hives, Insect Bite Sensitivity, Itchy/Watery Eyes, Nasal Congestion, Post Nasal Drip, Seasonal Allergies, Other Hematological and Lymphatic: No: Bleeding Problems, Blood Clots, Blood Transfusions, Brusing, Night Sweats, Pallor, Swollen Lymph Nodes, Other ENDOCRINE: No: Breast Changes, Galactorrhea, Hair Pattern Changes, Hot Flashes, Malaise/lethargy, Mood Swings, Palpitations, Polydipsia/polyuria, Skin Changes, Temperature Intolerance, Unexpected Weight Changes, Other Breast: No New/Changing Breast Lumps, No Nipple changes, No Nipple discharge, No Other Respiratory: No: Cough, Hemoptysis, Orthopnea, Pleuritic Pain, Shortness of breath, SOB with excertion, Sputum Changes, Stridor, Tachypnea, Wheezing, Other Cardiovascular: yes Chest Pain; appears noncardiac No Palpitations, No Orthopnea, No Paroxysmal Noc. Dyspnea, No Edema, No Lt Headedness, No Other (occ exertional angina) Gastrointestinal: No Nausea, No Vomiting, No Abdominal Pain, No Diarrhea, No Constipation, No Melena, No Hematochezia, No Other Genitourinary: No Dysuria, No Frequency, No Incontinence, No Hematuria, No Retention, No Discharge, No Urgency, No Pain, No Flank Pain, No Other, No , No , No , No , No , No , No Musculoskeletal: Yes Gait Disturbance, Yes Joint Pain, Yes Joint Stiffness Neurological: No Behavorial Changes, No Bowel/Bladder ControlChng, No Confusion, No Dizziness, No Gait Disturbance, No Headaches, No Impaired Coord/balance, No Memory Loss, No Numbness/Tingling, No Seizures, No Speech Problems, No Tremors, No Visual Changes, No Weakness, No Other Skin: No Dry Skin, No Eczema, No Hair Changes, No Lumps, No Mole Changes, No Mottling, No Nail Changes, No Pruritus, No Rash, No Skin Lesion Changes, No Other, No Acne Physical Exam Physical Exam Physical Exam General: Alert, Oriented X3, Cooperative, No acute distress HEENT: PERRLA Lungs: Clear to auscultation, Normal air movement Heart: S1S2, RRR, no thrills, no rubs, no gallops, no murmurs Breasts: Not examined Abdomen: Normal bowel sounds, Soft Rectal Exam: not examined, deferred Extremities: No cyanosis Neuro: Normal speech, Strength at 5/5 X4 ext, Normal tone, Sensation intact, Cranial nerves 3-12 NL Psych/Mental Status: Mental status NL, Mood NL hallux deformity left foot General: Cooperative Breasts: Not examined Rectal Exam: not examined Extremities: No cyanosis, No edema Neuro: Normal speech, Strength at 5/5 X4 ext, Cranial nerves 3-12 NL Psych/Mental Status: Mental status NL, Mood NL Vitals Vitals Vital Signs Date Time Temp Pulse Resp B/P (MAP) Pulse Ox O2 Delivery O2 Flow Rate FiO2 01/14/21 08:50 97.3 95 16 96 97.3 Images Images APPROVED REPORT Test Type: Pharmacological Stress Nurse/Tech: JIMMY MAS Test Indications: PRE-OP, CHEST PAIN 2 WEEKS AGO Cardiac History: HTN- SEE EMR Medications: SEE EMR Medical History: SMOKER, HTN- SEE EMR Resting ECG: SR Resting Heart Rate: 71 bpm Resting Blood Pressure: 152/94mmHg Pretest Chest Pain: No chest pain Nurse/Tech Notes S1,S2, LUNGS CTA, DENIED CHEST PAIN OR SOA AT THIS TIME. BP SLIGHTLY ELEVATED. Consent: The procedure was explained to the patient in lay terms. Informed consent was witnessed. Timeout was entered into [facility]. History and Stress Test performed by RT Katie (Francia) (N) Pharm. Details Pharmacologic stress testing was performed using 0.4mg per 5ml of regadenoson given intravenously over 7-10 seconds. Stress Symptoms ONLY COMPLAINT PT HAD WAS SHORTNESS OF BREATH, SYMPTOM SUBSIDED QUICKLY. DENIED CHEST PAIN. VSS. POST EXERCISE Reason for Termination: Infusion complete Max HR: 113 bpm Max Blood Pressure: 158/97mmHg Blood Pressure response to exercise: Abnormal blood pressure response during stress. Heart Rate response to exercise: Normal heart rate response during stress. Chest Pain: No. Arrhythmia: No. No significant changes noted from baseline EKG. ST Change: No. INTERPRETATION Stress EKG Conclusion: Baseline EKG showed sinus rhythm. No ischemic changes at peak stress. No arrhythmias. Imaging Protocol IMAGE PROTOCOL: Rest Tc-99m/stress Tc-99m 1 day Rest: Stress: Viability: Radiopharm. Tc99m Sestamibi Tc99m Sestamibi Dose 10.6mCi 32mCi Duration 13min. 13min. Img Date 01/11/2021 01/11/2021 Inj-Img Time 60min. 60min. Rest Admin Site: IV - Left Hand Binder Roller: RT Katie (Francia)(N) Stress Admin Site: IV - Left Hand Binder Roller: RT Katie (Francia)(N) STRESS DATA End Diast. Vol. 103.0ml LVEDV index BSA 57.0ml End Syst. Vol. 32.0ml LVESV index BSA 18.0ml Myocardial Mass 138.0g Eject. Fraction 69.0% Stress Scores Regional WT 2.00 Summed WT 9.00 Regional WM 0.00 Summed WM 1.00 Study quality was good. Left Ventricular size was Normal at Rest and Stress. Lung uptake was . Left Ventricular ejection fraction is 68%. The rest and stress images show normal perfusion, normal contraction and thickening. LV Perf. Quant 17 Seg. SSS 1.00 17 Seg. SRS 2.00 17 Seg. SDS 0.00 Stress Defect Extent (% LAD) 0.00 Rest Defect Extent (% LAD) 0.00 Rev. Defect Extent (% LAD) 0.00 Stress Defect Extent (% LCX) 0.00 Rest Defect Extent (% LCX) 0.00 Rev. Defect Extent (% LCX) 0.00 Stress Defect Extent (% RCA) 0.00 Rest Defect Extent (% RCA) 14.40 Rev. Defect Extent (% RCA) 0.00 Stress Defect Extent (% STACIA) 0.00 Rest Defect Extent (% STACIA) 3.90 Rev. Defect Extent (% STACIA) 0.00 Conclusion 1. Regadenoson cardioisotope stress test did not show any evidence of ischemia or infarct. 2. Normal left ventricular systolic function with ejection fraction calculated at 68%. 3. Low risk for cardiac events. Signed by : Yoan Arceo, Electronically Approved : 01/11/2021 18:25:01 DICTATED and SIGNED BY: YOAN ARCEO MD VTE Prophylaxis Ordered VTE Prophylaxis Devices: Yes VTE Pharmacological Prophylaxi: Yes Assessment/Plan Assessment/Plan VTE Prophylaxis Ordered VTE Prophylaxis Devices: Yes VTE Pharmacological Prophylaxi: Yes Assessment/Plan Assessment/Plan impression 1. left foot pain with hallux deformity 2. hx hypertension 3. recent chest discomfort stable 4. heavy alcohol abuse 5. Tobacco abuse disorder plan reviewed recent cbc, comp, cxr cleared by CARDIOLOGY CONSULT REDUCE OR STOP ETOH ABUSE HOME MEDS low risk surgery for today by my review Justifications for Admission Other Justification SUMEET RIVERA MD Jan 14, 2021 08:57
[2021-01-14] MEDS ORDERED: SEVOFLURANE 61 TO 120 MINUTES. IH ONE (09:03)
[2021-01-14] MEDS ORDERED: fentaNYL PF VIAL 100 MCG/2 ML VIAL ONE ×2 (09:03→09:57)
[2021-01-14] MEDS ORDERED: ONDANSETRON PF 4 MG/2 ML VIAL. ONE (09:04)
[2021-01-14] MEDS ORDERED: PROPOFOL 10 MG/ML (20ML) VIAL. IV ONE (09:04)
[2021-01-14] MEDS ORDERED: LIDOCAINE 2% PF 5 ML VIAL. ONE (09:04)
[2021-01-14] MEDS: fentaNYL PF VIAL 100 MCG/2 ML VIAL IVP PRN ×4 (09:59→10:44)
--- NOTE | 2021-01-14 10:13 | PDOC4 ---
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 transferred to PACU with VSS And VSI to left foot JOHN HUERTA DPM Jan 14, 2021 10:13
--- NOTE | 2021-01-14 10:15 | OP ---
DATE OF SURGERY: 01/14/2021 PREOPERATIVE DIAGNOSIS: Painful hammertoe, left foot. POSTOPERATIVE DIAGNOSIS: Painful hammertoe, left foot. PROCEDURE: Second digit amputation, left foot. SURGEON: Susannah Rosales DPM ANESTHESIA: LMA with local. HEMOSTASIS: Left ankle tourniquet at 250 mmHg x 15 minutes. INDICATIONS: The patient is a 60-year-old male who complains of a painful hammertoe to the left foot. He underwent previous hammertoe surgery and developed secondary painful callus at the medial proximal interphalangeal joint. He was treated conservatively with debridement of callus as well as accommodative padding and wide shoe gear. He continued to develop a painful callus which was affecting his everyday life and he was counseled on his treatment options to include continued conservative treatment with accommodative padding and wide shoe gear versus forefoot reconstructive surgery to include an osteotomy of the first metatarsal as well as an arthrodesis of the 2nd digit and osteotomy possibly to the second metatarsal head versus an isolated second digit amputation. We discussed the risks, benefits and complications of both as well as the postoperative course of both and the patient wished to proceed with an isolated second digit amputation of the left foot. Discussed with the patient possible risks, benefits and complications to include delayed or nonhealing, need for further, further migration of his hallux and third toe transfer lesions. No guarantees were made. All questions were answered and the patient signed consent and put in chart. DESCRIPTION OF PROCEDURE: The patient was transported to the operating room via a cart and placed on the operating table in supine position. Final verification of the surgery the patient's limb was performed. The anesthesia administered LMA and a well-padded tourniquet was placed over the left ankle. A second digit block was given consisting of 1:1 mixture of 1% lidocaine plain and 0.5% Marcaine plain, 8 mL total. The left foot was then prepped and draped in the usual aseptic manner. Esmarch bandage was used to exsanguinate the left foot. The left ankle tourniquet was inflated to 250 mmHg. Attention was directed to the left second toe where a towel clamp was utilized to check anesthesia on the second toe and the two converging linear incisions were made to the medial and lateral aspect of the second digit at the metatarsophalangeal joint. The second digit was then disarticulated at the proximal phalanx at the level of the metatarsophalangeal joint and this was resected and sent to pathology in toto. The wound was copiously irrigated with sterile saline. Small vessels were cauterized and the wound was reapproximated with 4-0 nylon. The postoperative bandage was placed with Betadine ointment, Adaptic gauze, 4 x 4, Kerlix, Cirilo bandage. Tourniquet was deflated after 50 minutes and good perfusion was noted to all digits of the left foot. The patient tolerated both anesthesia and procedure well. Second digit was sent to pathology and the patient's postoperative instructions are in the chart. SUSANNAH ROSALES DPM DR: Courtney JOB#: [id number] / [id number]
[2021-01-14 11:05] VITALS: BP 149/87
--- NOTE | 2021-01-14 16:22 | RAD ---
XR FOOT_LEFT 3 VIEWS History: Postop Comparison: None. Technique: 3 portable views of the left foot Findings: Postsurgical changes from left second toe amputation at the metatarsophalangeal joint. Bandage materi al overlies the surgical bed. Old postsurgical changes of the fifth toe proximal phalangeal base. No fracture or dislocation. Mild degenerative changes at the first metatarsophalangeal joint. Fixation s crews at the distal tibial metaphysis. Impression: 1. Postsurgical features from left second toe amputation at the MTP. Electronically signed by: Edwin Early MD (01/14/2021 4:20 PM) [facility]
--- NOTE | 2021-01-20 13:08 | PATHOLOGY ---
[facility] Accession Number: [id number] . 01 Material submitted: . toe - LEFT SECOND TOE. Modifiers: left, second . 01 Clinical history: . UNK HAMMER TOE AMPUTATION LEFT FOOT SECOND TOE . 02 Diagnosis: Skin, bone and soft tissue "left second toe", amputation: - Callous with underlying reactive/degenerative changes of bone. - Negative for malignancy. (MLK:pit; 01/19/2021) QTP 01/19/2021 1441 Local . 02 Electronically signed: . Flory Chávez MD, Pathologist NPI- [id number] . 01 Gross description: . The specimen is received in formalin, labeled "Kevin Vu Jr., left second toe". Received is an amputated digit measuring 5.0 x 2.3 x 2.4 cm in greatest dimensions. The bone margin is smooth and concave in appearance, consistent with disarticulation. The bone and soft tissue margins are inked black. The nail is present displaying a pale parisi and grossly unremarkable appearance. On the medial aspect of the specimen, there is a well-circumscribed, flat and light parisi lesion measuring 0.8 x 0.6 cm, which is 0.5 cm from the closest skin margin. The remainder of the epidermal surface is pale parisi to dusky hayden-brown in appearance. The specimen is submitted personal financial representative as follows: . A1 horizontal cross-section through lesion, to include underlying bone, following decalcification A2 longitudinal cross-section through bone margin, following decalcification. (CAA; 01/17/2021) QAC/QAC 01/17/2021 1725 Local . 02 Pathologist provided ICD-10: M89.8X7 . 02 CPT . 038998, [id number] Specimen Comment: A courtesy copy of this report has been sent to [phone], [phone] Specimen Comment: [id number] Specimen Comment: Report sent to / DR MENESES Performed at: [address] [facility] [address], [place] [id number] MD Gianluca Luo MD Phone: [phone] Performed at: 02 [facility] [address] [place], [place] [id number] MD Moise Bazzi MD Phone: [phone]
== END 2021-01-14 11:27 | disposition home or self-care (01) ==
LOC: SURG 08:22
PROVIDERS: ATTEND Podiatrist Foot & Ankle Surgery
DX: M20.42 Other hammer toe(s) (acquired), left foot (principal); I10 Essential (primary) hypertension; E78.00 Pure hypercholesterolemia, unspecified; Z87.891 Personal history of nicotine dependence; Z79.899 Other long term (current) drug therapy; Z72.89 Other problems related to lifestyle; Z98.890 Other specified postprocedural states
CPT/HCPCS: 28820; 73630; A4930; J1100; J2405; J2704; J3010; J3490; A4657